=== PATIENT | male | born 2000 | race Hispanic/Latino ===

== ENCOUNTER 2025-04-17 21:58 | Emergency (ER) | payer OTHER ==
[~2025-04-17] VITALS: Ht 167.6 cm; Wt 104.3 kg
--- NOTE | 2025-04-17 23:54 | NUR ---
PER PT , CAT IS A STRAY THEY TOOK TO VET, CAT " ESCAPED". STATES THEY CONTACTED [employer]IMAL [employer] SORTER IN ER.
[2025-04-18] MEDS ORDERED: AMOX1TAB16 PO (00:12)
--- NOTE | 2025-04-18 00:12 | ERN ---
ED Note History of Present Illness Stated Complaint: ANIMAL SCRATCH Chief Complaint: Animal Bite Time Seen by MD: 21:59 Time Seen by Midlevel: 21:59 Dictation: The patient is a 24-year-old male with no past medical history who presents to the emergency department with complaints of a cat scratch to his right forearm. Patient was a stray cat and was seen foaming at the mouth with the incident happened. Patient reports that the cat ran away and there do not know about the whereabouts. Allergies: Coded Allergies: No Known Allergies (Unverified Allergy, Unknown, 04/17/25) Past Medical History Past Medical History: No Pertinent History Surgical History: None RN Note Reviewed/Agreed w/PFSH: Yes Review of System Dictation Constitutional: Negative for fever,chills, and weight loss Eyes: Negative for injury, pain,redness, and discharge ENT: Negative for injury,pain or swelling Cardiovascular: Negative for chest pain, palpitations, and edema Respiratory: Negative for shortness of breath, cough, and wheezing, Abdomen/GI: Negative for abdominal pain, nausea, vomiting, diarrhea, and constipation Back: Negative for injury and pain : Negative for injury, bleeding and discharge MS/Extremity: Negative for injury and deformity Skin: Negative for rash, and discoloration positive for scratched Neuro: Negative for headache, weakness, numbness, tingling, and seizure Psych: Negative for suicide ideation, homicidal ideation, and hallucinations Initial Vital Sign VS Vital Signs Date Time Temp Pulse Resp B/P (MAP) Pulse Ox O2 Delivery O2 Flow Rate FiO2 04/17/25 21:59 97.7 90 20 150/70 100 Room Air Physical Exam Dictation Vital Signs reviewed General Appearance: Alert, oriented x 3, no acute distress, well developed, nourished. Head and Face: non-traumatic. Eyes: PERRL, pink conjunctivas, eyelid no trauma, anterior chamber with arcus senilis. Ears: Pinnas intact and no signs of trauma or erythema ear canals clear and no discharge TM no erythema Nose: No discharge, no bleeding. Oropharynx: Mouth normal, tongue pink. pharynx clear,no erythema, tonsils no exudates, no abscesses noted, mucous membrane moist Neck: Supple, non-tender, no thyromegaly, no masses, no JVD, no bruits Breast:Deferred Chest:No tenderness, no crepitus, no paradoxical movement, no retractions Lungs:Clear, well-ventilated, symmetric, no rales, no wheezing, no rhonchi, no stridor, good breath sounds bilaterally Heart: Regular rate, regular rhythm, no murmur, no gallops Vascular: no peripheral edema, Abdomen: Soft, positive bowel sounds, nondistended, no guarding, nontender, no rebound, no masses no hepatomegaly, no splenomegaly, no Navarro's sign, no hernias. Rectal: Deferred Genital: Deferred Neurological: Normal speech, motor function intact, sensory function intact Musculoskeletal: Neck nontender, full range of motion, back nontender, full range of motion, Extremities: nontender, full range of motion Skin: Color pink, dry, no turgor, no rash, no lacerations, no contusions. Small abrasion noted to right forearm about 3 cm in length, no active bleeding, no erythema Lymphatic: Deferred Results (Laboratory/Radiology) Labs Reviewed?: Yes ED Course ED Course Orders Procedure Category Date Status Time Amox/Clav 875/125mg PHA 04/17/25 Complete Tab (Augmentin 875-1 23:00 Rabies Vacc, Human PHA 04/17/25 Complete Diploid/Pf (Imovax Ra 23:00 Current Medications Medications (Trade) Dose Ordered Sig/Chris Route PRN Reason Start Time Stop Time Status Last Admin Dose Admin Amoxicillin/ Clavulanate Potassium (Augmentin 875-125 Tablet) 1 each ONCE ONCE PO 04/17/25 23:00 04/17/25 23:01 DC Rabies Vaccine Human Diploid Cell (Imovax Rabies Vaccine) 2.5 unit ONCE ONCE IM 04/17/25 23:00 04/17/25 23:01 DC Vital Signs Date Time Temp Pulse Resp B/P (MAP) Pulse Ox O2 Delivery O2 Flow Rate FiO2 04/17/25 21:59 97.7 90 20 150/70 100 Room Air Medical Decision Making MDM The patient is a 24-year-old male with no past medical history who presents to the emergency department with complaints of a cat scratch to his right forearm. Patient was a stray cat and was seen foaming at the mouth with the incident happened. Patient reports that the cat ran away and there do not know about the whereabouts. Patient is updated to tetanus. Reports he got at three years ago after being bitten by a dog. Patient reports he washed his wound. Small abrasion noted to the forearm. No drainage or bleeding. Patient will be started on antibiotics prophylactic and given the rabies vaccine and instructed to follow up with the Health Department. Differential diagnosis: Cat scratch, laceration, avulsion Need for hospitalization: Patient does not meet criteria for hospitalization. There are no social concerns with this patient. DX & DISP Disposition: Discharge Departure Impression: Primary Impression: Cat scratch Condition: Stable Scripts Amoxicillin/Potassium Clav (Amox Tr-K Clv 875-125 mg Tab) 875 Mg-125 Mg Tablet 1 TAB PO BID for 3 Days, #6 TAB 0 Refills Prov: FABIOLA CARRILLO 04/18/25 Additional Instructions: Please follow up with the Health Department and follow up on the rest of the vaccines. If anything worsens please return to ER. FOLLOW-UP WITH PRIMARY CARE PROVIDER IN 1 TO 2 DAYS. TAKE MEDICATIONS DIRECTED HERE IN THE EMERGENCY ROOM. OKAY TO CONTINUE HOME MEDICATIONS UNLESS OTHERWISE DISCUSSED DURING YOUR VISIT IN THE EMERGENCY ROOM TODAY. RETURN TO YOUR NEAREST EMERGENCY ROOM IF SYMPTOMS WORSEN OR IF THERE IS NO IMPROVEMENT. CALL 911 IF YOU NEED IMMEDIATE ASSISTANCE. TAKE TYLENOL [id number] NEEDED AND IF NO CONTRAINDICATIONS ARE PRESENT. INCREASE ORAL HYDRATION. A WOUND CULTURE OR URINE CULTURE WAS ORDERED HERE IN THE EMERGENCY ROOM DEPARTMENT PLEASE FOLLOW-UP WITH PRIMARY CARE PROVIDER AND ADVISE THEM TO GET REPEAT PORTS FROM OUR FACILITY. IF YOU HAD ANY ANTHONY WRAP/SPLINTS THAT WERE APPLIED HERE, PLEASE DO NOT REMOVE THEM UNTIL YOU SEE YOUR PRIMARY CARE OR SPECIALTY. Referrals: SELF,REFERRAL (PCP) Time of Disposition: 00:11 I have reviewed the case, and I agree with, Diagnosis and Plan FABIOLA CARRILLO Apr 18, 2025 00:12
[2025-04-18] MEDS: RABIES VACC, HUMAN DIPLOID/PF 2.5 UNIT ML IM ONE (00:48)
[2025-04-18] MEDS: AMOX/CLAV 875/125MG TAB PO ONE (00:48)
[2025-04-18 01:24] VITALS: BP 142/72; PULSE 88; RESP 17; TEMP 97.8; O2SAT 100
== END 2025-04-18 01:25 | disposition home or self-care (01) ==
LOC: EDH 21:58
DX: S50.811A Abrasion of right forearm, initial encounter (principal); W55.03XA Scratched by cat, initial encounter; Y93.89 Activity, other specified; Y92.89 Other specified places as the place of occurrence of the external cause; Y99.8 Other external cause status
CPT/HCPCS: 90471; 90675; 99283